=== PATIENT | male | born 1990 | race Caucasian/White ===

== ENCOUNTER 2017-03-04 09:25 | Emergency (ER) | payer SELFPAY ==
[~2017-03-04] VITALS: Ht 167.6 cm; Wt 59.9 kg
[2017-03-04 09:30] VITALS: TEMP 36.7; Ht 167.6 cm; Wt 59.9 kg
[2017-03-04] MEDS ORDERED: KETOROLAC TROMETHAMINE 30 MG/ML VIAL IV STA (10:23)
--- NOTE | 2017-03-04 10:24 | EMERGENCY ROOM VISIT NOTE ---
History Report prepared by Ryiaibe: Waleska Reece Under the Supervision of: Dr. Benson Boudreaux M.D. First contact with patient: 10:18 Chief Complaint: KNEEPAIN Stated Complaint: KNEE PAIN History of Present Illness The patient is a 26 year old male who presents to the Emergency Room with complaints of right knee pain and swelling starting 3 days ago. The patient has a history of staph. He notes he has a cut on his knee that has increased in redness over the past couple days. He also notes neck pain that started at the same time as his knee pain. The patient states there has been no drainage from the cut. He denies any fever, chills, cough, nausea, or vomiting. The patient has a history of an appendectomy. Source of History: patient Onset: 3 days ago Position: knee Associated Symptoms: No fevers, No chills, No cough, No nausea Note: Pt notes increased redness and denies any drainage from the site. Review of Systems See HPI for pertinent positives and negatives. A total of ten systems were reviewed and were otherwise negative. Past Medical & Surgical Medical Problems: (1) Asthma, Unspecified (2) Knee pain (3) Osteomyelitis (4) Osteomyelitis Nos-L/Leg (5) Tobacco Use Disorder Surgical Problems: (1) S/P appendectomy Family History No significant family history Social History Smoking Status: Current Every Day Smoker Alcohol Use: occasionally Housing Status: lives with family Occupation Status: employed Current/Historical Medications Scheduled Cephalexin Monohydrate (Keflex), 500 MG PO QID Sulfa/Trimethoprim (Bactrim Ds 800MG/160MG), 2 TAB PO BID Allergies Coded Allergies: No Known Allergies (Verified , 03/04/17) Physical Exam Vital Signs Date Time Temp Pulse Resp B/P (MAP) Pulse Ox O2 Delivery O2 Flow Rate FiO2 03/04/17 15:48 51 18 106/64 100 03/04/17 13:41 126/78 03/04/17 11:36 107/67 03/04/17 09:30 36.7 73 16 108/67 100 Room Air Physical Exam GENERAL: Awake, alert, well-appearing, in no distress HENT: Normocephalic, atraumatic. Oropharynx unremarkable. EYES: Normal conjunctiva. Sclera non-icteric. NECK: Supple. No nuchal rigidity. FROM. No JVD. RESPIRATORY: Clear to auscultation. CARDIAC: Regular rate, normal rhythm. Extremities warm and well perfused. Pulses equal. ABDOMEN: Soft, non-distended. No tenderness to palpation. No rebound or guarding. No masses. RECTAL: Deferred. MUSCULOSKELETAL: Chest examination reveals no tenderness. The back is symmetrical on inspection without obvious abnormality. There is no CVA tenderness to palpation. No joint edema. LOWER EXTREMITIES: Calves are equal size bilaterally and non-tender. 1 cm erythema, duration, and fluctuance of inferior aspect of interior right knee. ROM intact with no joint pain. NEURO: Normal sensorium. No sensory or motor deficits noted. SKIN: No rash or jaundice noted. Medical Decision & Procedures ER Provider Diagnostic Interpretation: Radiology results as stated below per my review and radiologist interpretation: RIGHT KNEE 3 VIEWS FINDINGS: Alignment of the right knee is anatomic with the exception of mild lateral patellar tilt. No fracture or suspicious lesion is present. There is no evidence for osteomyelitis. No joint effusion is present. There is mild infrapatellar soft tissue swelling. IMPRESSION: 1. No acute fracture. No radiographic evidence of osteomyelitis. No joint effusion. 2. Mild infrapatellar soft tissue swelling. Electronically signed by: Willie Fernandez M.D. Laboratory Results 03/04/17 10:45 Red Blood Count 4.76, Mean Corpuscular Volume 86.8, Mean Corpuscular Hemoglobin 29.8, Mean Corpuscular Hemoglobin Concent 34.4, Mean Platelet Volume 10.2, Neutrophils (%) (Auto) 68.7, Lymphocytes (%) (Auto) 21.9, Monocytes (%) (Auto) 8.5, Eosinophils (%) (Auto) 0.7, Basophils (%) (Auto) 0.1, Neutrophils # (Auto) 4.71, Lymphocytes # (Auto) 1.50, Monocytes # (Auto) 0.58, Eosinophils # (Auto) 0.05, Basophils # (Auto) 0.01 03/04/17 10:45 Test 03/04/17 10:45 White Blood Count 6.86 K/uL (4.8-10.8) Red Blood Count 4.76 M/uL (4.7-6.1) Hemoglobin 14.2 g/dL (14.0-18.0) Hematocrit 41.3 % (42-52) Mean Corpuscular Volume 86.8 fL (80-100) Mean Corpuscular Hemoglobin 29.8 pg (25-34) Mean Corpuscular Hemoglobin Concent 34.4 g/dl (32-36) Platelet Count 177 K/uL (130-400) Mean Platelet Volume 10.2 fL (7.4-10.4) Neutrophils (%) (Auto) 68.7 % Lymphocytes (%) (Auto) 21.9 % Monocytes (%) (Auto) 8.5 % Eosinophils (%) (Auto) 0.7 % Basophils (%) (Auto) 0.1 % Neutrophils # (Auto) 4.71 K/uL (1.4-6.5) Lymphocytes # (Auto) 1.50 K/uL (1.2-3.4) Monocytes # (Auto) 0.58 K/uL (0.11-0.59) Eosinophils # (Auto) 0.05 K/uL (0-0.5) Basophils # (Auto) 0.01 K/uL (0-0.2) RDW Standard Deviation 41.8 fL (36.4-46.3) RDW Coefficient of Variation 13.1 % (11.5-14.5) Immature Granulocyte % (Auto) 0.1 % Immature Granulocyte # (Auto) 0.01 K/uL (0.00-0.02) Erythrocyte Sedimentation Rate 2 mm/hr (0-14) Anion Gap 3.0 mmol/L (3-11) Est Creatinine Clear Calc Drug Dose 136.7 ml/min Estimated GFR () > 150.0 Estimated GFR (Non- 131.2 BUN/Creatinine Ratio 12.9 (10-20) Calcium Level 8.4 mg/dl (8.5-10.1) C-Reactive Protein 0.52 mg/dl (0-0.29) Laboratory results reviewed by me Medications Administered Medications (Trade) Dose Ordered Sig/Carmen Route Start Time Stop Time Status Last Admin Dose Admin Ketorolac Tromethamine (Toradol Inj) 30 mg NOW STAT IV 03/04/17 10:23 03/04/17 10:24 DC 03/04/17 10:51 30 MG Lidocaine/ Epinephrine (Xylocaine/Epine 1% Inj) 20 ml ONE ONCE INFIL 03/04/17 14:45 03/04/17 14:46 DC 03/04/17 14:54 20 ML Cephalexin Monohydrate (Keflex Cap) 500 mg NOW ONCE PO 03/04/17 15:30 03/04/17 15:31 DC 03/04/17 15:41 500 MG Trimethoprim/ Sulfamethoxazole (Septra Ds 800/ 160MG Tab) 2 tab NOW STAT PO 03/04/17 15:20 03/04/17 15:21 DC 03/04/17 15:41 2 TAB Procedure Incision and drainage of right knee was performed. Patient was prepped and draped in sterile fashion iodine. Patient was anesthetized with 1% lidocaine with epinephrine. A 0.5 cm incision was made with a 16 blade. Purulent discharge was expressed from the abscess pocket. Abscess was explored for loculations and irrigated with copious normal saline. No complications. ED Course 1022: The patient was evaluated in room B10. A complete history and physical exam was performed. 1023: Toradol Inj 30 mg IV. 1445: Lidocaine/ Epinephrine 20 ml INFIL. 1500: Incision and drainage of right knee. 1520: Trimethoprim/Sulfamethoxazole 2 tab PO. 1530: Keflex Cap 500 mg PO. 1538: I reevaluated the patient. Discussed results and discharge instructions: He verbalized understanding and agreement. The patient is ready for discharge. Medical Decision I reviewed the patient's past medical history, medications, and the nursing notes as described above. Differential diagnosis: cellulitis, abscess, and septic joint. The patient is a 26-year-old gentleman with a medical history of remote septic knee who presents to emergency department with worsening right knee pain and swelling per history of present illness. While the patient is no acute distress , afebrile stable vital signs. Exam the patient has a 1 cm area of erythema, induration, and fluctuance inferior portion of the anterior knee. Range of motion is intact without significant discomfort. Patient is able to ambulate without difficulty. Labs unremarkable WBC and ESR within normal limits. CRP marginally elevated. I and D was performed of the abscess per procedure note without consultations. Patient feeling improved. While patient had a simple abscess, sitting his history of septic knee, will provide antibiotic coverage with Keflex and Bactrim. Findings and plan for follow-up d/w patient. Patient agreeable and d/c'd per discharge instructions. Medication Reconcilliation Current Medication List: was personally reviewed by me Blood Pressure Screening Patient's blood pressure: Normal blood pressure Impression Primary Impression: Abscess Scribe Attestation The scribe's documentation has been prepared under my direction and personally reviewed by me in its entirety. I confirm that the note above accurately reflects all work, treatment, procedures, and medical decision making performed by me. Departure Information Dispostion Home / Self-Care Prescriptions Cephalexin Monohydrate (Keflex) 500 Mg Cap 500 MG PO QID, #28 CAP Prov: Benson Boudreaux M.D. 03/04/17 Sulfa/Trimethoprim (Bactrim Ds 800MG/160MG) Tab 2 TAB PO BID, #28 TAB Prov: Benson Boudreaux M.D. 03/04/17 Referrals No Doctor, Assigned (PCP) Forms HOME CARE DOCUMENTATION FORM, IMPORTANT VISIT INFORMATION Patient Instructions Drainage Abscess, ED Abscess IandD, My [facility] Additional Instructions Please follow up with your primary care physician in the next 1-3 days for reevaluation. You had an abscess that was drained on your knee. Otherwise, your exam, lab results, and xray did not show signs of an emergent condition at this time. Take antibiotics as directed. Acetaminophen and ibuprofen for pain as needed Return to the emergency department for worsening symptoms as described in the accompanying instructions.
[2017-03-04 11:00] LABS: BASO % 0.1 %; BASO ABS # 0.01 K/uL (0-0.2); COMPLETE YES; EOS % 0.7 %; HEMATOCRIT 41.3 % (42-52); IG% 0.1 %; LYMPH % 21.9 %; MEAN CELL VOLUME 86.8 fL (80-100); MEAN CORPUSCULAR HEMOGLOBIN 29.8 pg (25-34); MEAN CORPUSCULAR HGB CONC 34.4 g/dl (32-36); MEAN PLATELET VOLUME 10.2 fL (7.4-10.4); MONO % 8.5 %; NEUT % 68.7 %; PLATELET COUNT 177 K/uL (130-400); RED BLOOD COUNT 4.76 M/uL (4.7-6.1); WHITE BLOOD COUNT 6.86 K/uL (4.8-10.8)
[2017-03-04 11:18] LABS: BLOOD UREA NITROGEN 9 mg/dl (7-18); BUN/CREATININE RATIO 12.9 (10-20); CALCIUM 8.4 mg/dl (8.5-10.1); CARBON DIOXIDE 29 mmol/L (21-32); CHLORIDE 108 mmol/L (98-107); GLUCOSE 94 mg/dl (70-99); POTASSIUM 4.4 mmol/L (3.5-5.1); SODIUM 140 mmol/L (136-145)
[2017-03-04 11:19] LABS: C-REACTIVE PROTEIN 0.52 mg/dl (0-0.29)
--- NOTE | 2017-03-04 12:10 | DIAGNOSTIC IMAGING REPORT ---
RIGHT KNEE 3 VIEWS CLINICAL HISTORY: Right knee pain and swelling. History of septic knee. COMPARISON: Right knee radiographs December 14, 2013. FINDINGS: Alignment of the right knee is anatomic with the exception of mild lateral patellar tilt. No fracture or suspicious lesion is present. There is no evidence for osteomyelitis. No joint effusion is present. There is mild infrapatellar soft tissue swelling. IMPRESSION: 1. No acute fracture. No radiographic evidence of osteomyelitis. No joint effusion. 2. Mild infrapatellar soft tissue swelling. Electronically signed by: Willie Fernandez M.D. 03/04/2017 12:09 PM Dictated Date/Time: 03/04/2017 12:08 PM
[2017-03-04] MEDS ORDERED: LIDOCAINE/EPINEPHRINE 1% 20 ML VIAL INFIL ONE (14:45)
[2017-03-04] MEDS ORDERED: CEPH500C PO (15:16)
[2017-03-04] MEDS ORDERED: SULF800T23 PO (15:16)
[2017-03-04] MEDS ORDERED: SULFAMETHOXAZOLE/TRIMETHOPRIM DS 800/160MG TAB PO STA (15:20)
[2017-03-04] MEDS ORDERED: CEPHALEXIN MONOHYDRATE 250 MG CAP PO ONE (15:30)
[2017-03-04 15:48] VITALS: BP 106/64; PULSE 51; O2SAT 100
== END 2017-03-04 15:49 | disposition home or self-care (01) ==
LOC: C.EDB 09:26
DX: L02.415 Cutaneous abscess of right lower limb (principal); J45.909 Unspecified asthma, uncomplicated; M86.9 Osteomyelitis, unspecified; F17.200 Nicotine dependence, unspecified, uncomplicated

== ENCOUNTER 2017-07-15 16:14 | Emergency (ER) | payer SELFPAY ==
[~2017-07-15] VITALS: Ht 167.6 cm; Wt 59.0 kg
[~2017-07-15 16:14] MED LIST: CEPH500C PO; SULF800T23 PO
[2017-07-15 16:16] VITALS: BP 116/73; PULSE 94; TEMP 37; O2SAT 99; Ht 167.6 cm; Wt 59.0 kg
--- NOTE | 2017-07-15 16:53 | EMERGENCY ROOM VISIT NOTE ---
ED Visit Note First contact with patient: 16:20 CHIEF COMPLAINT: Bilateral earache, blood in the right ear canal HISTORY OF PRESENT ILLNESS: This 27-year-old male patient presents to the emergency department ambulatory, complaining of URI symptoms x 3 days. The patient states they have been experiencing congestion, runny nose, sore throat, cough, chills, and headache. He has also been experiencing bilateral otalgia, initially worse on the left, but now worse on the right. The patient states it felt like "when you got the mountains". He states this morning, he noticed some bloody drainage in the right ear canal. He states he had been experiencing some eye swelling and sick drainage from the right eye, and thought he may have pinkeye. He did use some of his girlfriend's eyedrops she had left over from a prior conjunctivitis infection, and states they did help. They deny any other symptoms including swollen lymph nodes, fever, nausea, or vomiting. The patient describes the drainage from the nose as yellow. There is no sinus pressure or pain. The patient has taken Theraflu without significant improvement in symptoms. The patient does not recall any known exposure to strep throat. The patient does not have a history of sinus infections. Denies a rash. REVIEW OF SYSTEMS: A 10 system review of systems was performed with positives and pertinent negatives listed in the history of present illness. All other systems were reviewed and are negative. ALLERGIES: None MEDICATIONS: None PMH: None SOCIAL HISTORY: Patient lives locally. He denies drug, alcohol use. He admits to smoking cigarettes. PHYSICAL EXAM: VITALS: Vitals are noted on the nurse's note and reviewed by myself. Vital signs stable. GENERAL: This is a 27-year-old white male, in no acute distress, nondiaphoretic , well-developed well-nourished. SKIN: The skin was without rashes, erythema, edema, or bruising. There is no tenting of the skin. Capillary reflex less than 2 seconds. HEAD: Normocephalic atraumatic. EARS: Bloody drainage noted in right external auditory canal. There is an apparent traumatic lesion in the inferior aspect of the canal, approximately half way between the external auditory meatus and the TM. Left external auditory canal clear, bilateral tympanic membranes slightly injected, without significant erythema. Mild serous fluid behind TM, but no significant effusion or bulging noted. EYES: Pupils equal round and reactive to light and accommodation. Conjunctivae without injection, sclerae without icterus. Extraocular movements intact. NOSE: Patent, turbinates without inflammation or erythema. Watery, yellow rhinorrhea noted. No sinus tenderness. MOUTH: Mucous membranes moist. Tonsils are not enlarged. Pharynx without erythema or exudate. Uvula midline. Airway patent. Tongue does not deviate. NECK: Supple without nuchal rigidity. No lymphadenopathy. No thyromegaly. Cervical spine is nontender. No JVD. HEART: Regular rate and rhythm without murmurs gallops or rubs. LUNGS: Clear to auscultation bilaterally without wheezes, rales or rhonchi. No dullness to percussion. No retractions or accessory muscle use. MUSCULOSKELETAL: No muscle atrophy, erythema, or edema noted. Full range of motion without joint tenderness in all extremities. No tenderness to palpation. Normal gait. Strength 5/5 throughout. NEURO: Patient was alert and oriented to person place and time. Normal sensation to light and sharp touch. No focal neurological deficits. EMERGENCY DEPARTMENT COURSE: The patient was seen and evaluated as above. I questioned the patient regarding possibilities that he experienced trauma of the ear canal and he denies. He denies use of q-tips, other objects, or scratching at the ear canal. He has symptoms consistent with a URI, and the ears do appear to be slightly injected, but not erythematous, bulging, or obviously infected. I discussed supportive care with the patient, and encouraged him to follow-up with a PCP next week if no improvement in symptoms. The patient does not have a PCP, so was provided with information from the case resolution specialist. Discharge instructions reviewed, and the patient was discharged home in good condition. DIFFERENTIAL DIAGNOSIS: Otitis Media, Otitis externa, TM rupture, external ear canal trauma, Acute Sinusitis, Acute pharyngitis, URI, Viral pharyngitis, Strep Pharyngitis, Peritonsillar abscess, tonsillitis, malignancy, and others DIAGNOSIS: Upper respiratory infection, Bloody drainage from ear canal Problem List Medical Problems: (1) Knee pain Status: Chronic (2) Osteomyelitis Status: Resolved Surgical Problems: (1) S/P appendectomy Status: Resolved Current/Historical Medications No Active Prescriptions or Reported Meds Allergies Coded Allergies: No Known Allergies (Verified , 07/15/17) Vital Signs Date Time Temp Pulse Resp B/P (MAP) Pulse Ox O2 Delivery O2 Flow Rate FiO2 07/15/17 16:16 37.0 94 20 116/73 99 Room Air Departure Information Impression Primary Impression: Upper respiratory infection Additional Impressions: Otalgia of both ears Blood in ear canal Dispostion Home / Self-Care Condition GOOD Prescriptions No Active Prescriptions or Reported Meds Referrals No Doctor, Assigned (PCP) Patient Instructions ED Upper Resp Infec No Abx Tx, My [facility] Additional Instructions You were seen and evaluated in the emergency department today for an upper respiratory infection. I do feel that based on your symptoms, and the duration of illness, this is likely viral in nature. As discussed, antibiotics will not treat viral illness. As discussed, there is a small area which appears to be due to trauma, which is bleeding in the ear canal. The eardrum has not perforated, and there is no acute signs of infection. For your sore throat, you may use a 1:1 mixture of liquid Benadryl and liquid Maalox. Gargle and spit this mixture. It will help to soothe the throat and provide some relief. Drink warm tea with honey and lemon, as this will also help to soothe the throat. Gargle with salt water frequently. As discussed, you should take OTC Mucinex and/or Sudafed for your symptoms. Please do not exceed the recommended daily dosages. Ibuprofen(Motrin, Advil) may be used for fever or pain. Use 600mg every six hours as needed. Take with food. Avoid using more than 2400mg in a 24 hour period. Do not use 2400mg per day for more than three consecutive days without physician direction. Prolonged inappropriate use can lead to stomach upset or ulcers. You may take Naproxen 1-2 tablets twice daily in place of ibuprofen. This medication will help with the swelling in your sinuses. (AND/OR) Acetaminophen(Tylenol) may be used for fever or pain. Use 1000mg every six hours as needed. Avoid using more than 3000mg in a 24 hour period. For congestion, you may use Flonase OTC. You may want to consider zinc, echinacea, and vitamin C to help boost your immunity. Please get plenty of rest and drink plenty of fluids. Please return or follow-up with your PCP in 1 week if you are not experiencing any improvement in your symptoms. Return to the emergency department for coughing up blood, difficulty breathing, chest pain, worsening symptoms, or for other concerns. Problem Qualifiers Primary Impression: Upper respiratory infection URI type: unspecified viral URI Qualified Codes: J06.9 - Acute upper respiratory infection, unspecified Additional Impressions: Blood in ear canal Laterality: right Qualified Codes: H92.21 - Otorrhagia, right ear
== END 2017-07-15 17:02 | disposition home or self-care (01) ==
LOC: C.EDB 16:15 → C.EDD 17:02
DX: J06.9 Acute upper respiratory infection, unspecified (principal); H92.03 Otalgia, bilateral; H92.21 Otorrhagia, right ear; F17.200 Nicotine dependence, unspecified, uncomplicated